=== PATIENT | male | born 2000 | race Caucasian/White ===

== ENCOUNTER 2019-05-01 07:02 | Emergency (ER) | payer BC ==
[2019-05-01 07:25] VITALS: BP 120/88
--- NOTE | 2019-05-01 07:37 | UC ---
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 Pt also states he has been coughing and exposed to strep. " -no fevers/chills. no wheezing. brother has asthma had some sinus pain last week but has resolved. no rash. never had mono. not really tired. no abd pain - History of Current Complaint Chief Complaint: UCGeneralIllness Stated Complaint: ST Time Seen by Provider: 05/01/19 07:19 Pain Intensity: 5 - Allergies/Home Medications Allergies/Adverse Reactions: Allergies Allergy/AdvReac Type Severity Reaction Status Date / Time Penicillins Allergy Unknown Verified 05/01/19 07:26 Reaction Details Home Medications: Home Medications Loratadine/Pseudoephedrine [Claritin-D 24 Hour 10-240 mg] 1 tab PO DAILY [History Confirmed 05/01/19] PMH/Surg Hx/FS Hx/Imm Hx Previously Healthy: Yes - Surgical History Surgical History: Yes Surgery Procedure, Year, and Place: testicular sugery- 17y - Family History Known Family History: Positive: Respiratory Disease - + asthma - Social History Alcohol Use: Rare Substance Use Type: None Smoking Status (MU): Never Smoked Tobacco Review of Systems All Other Systems Reviewed And Are Negative: Yes Constitutional: Positive: Negative. Negative: Fever, Chills, Fatigue Skin: Positive: Negative. Negative: Rash Eyes: Positive: Negative ENT: Positive: Sore Throat. Negative: Ear Ache, Nasal Discharge, Sinus Pain/ Tenderness Respiratory: Positive: Cough. Negative: Shortness Of Breath Cardiovascular: Positive: Negative. Negative: Palpitations Gastrointestinal: Positive: Negative. Negative: Abdominal Pain, Vomiting, Nausea Genitourinary: Positive: Negative Motor: Positive: Negative Neurovascular: Positive: Negative Musculoskeletal: Positive: Negative Neurological: Positive: Negative Psychological: Positive: Negative Is Patient Immunocompromised?: No Physical Exam Appearance: Well-Appearing, No Pain Distress, Well-Nourished Vital Signs: Initial Vital Signs Temp 97.7 F 05/01/19 07:22 Pulse 83 05/01/19 07:22 Resp 16 05/01/19 07:22 BP 120/88 05/01/19 07:22 Pulse Ox 100 05/01/19 07:22 Vital Signs Reviewed: Yes Eye Exam: Normal ENT Exam: Normal ENT: Positive: Pharyngeal erythema - mild., TMs normal, Uvula midline. Negative : Nasal congestion, Nasal drainage, TM bulging, TM dull, TM red, Tonsillar swelling, Tonsillar exudate, Sinus tenderness Dental Exam: Normal Neck exam: Normal Neck: Positive: Supple, Nontender, No Lymphadenopathy Respiratory Exam: Normal Respiratory: Positive: Lungs clear, Normal breath sounds, No respiratory distress, No accessory muscle use. Negative: Crackles, Rhonchi, Stridor, Wheezing Cardiovascular Exam: Normal Cardiovascular: Positive: RRR Abdominal Exam: Normal Abdomen Description: Positive: Nontender, No Organomegaly, Soft. Negative: Distended, Guarding, Splenomegaly Musculoskeletal Exam: Normal Neurological Exam: Normal Psychological Exam: Normal Skin Exam: Normal Skin: Negative: Rashes Throat Pain/Nasal Course/Dx - Course Course Of Treatment: Rapid strep neg -CBC w/ mono check - Differential Dx/Diagnosis Differential Diagnosis/HQI/PQRI: Mononucleosis, Pharyngitis, Tonsillitis, URI Provider Diagnosis: Pharyngitis Discharge ED - Sign-Out/Discharge Documenting (check all that apply): Patient Departure All imaging exams completed and their final reports reviewed: No Studies - Discharge Plan Condition: Stable Disposition: HOME Patient Education Materials: Pharyngitis (ED) Referrals: Deepti RUSSO,Sushant Grullon [Primary Care Provider] - 5 Days Additional Instructions: We have tested you for mono - you will get a call if it is positive. -rapid strep test is negative -Drink plenty of fluids and rest. tylenol or ibuprofen can help the pain. - Billing Disposition and Condition Condition: STABLE Disposition: Home
[2019-05-01 14:52] LABS: ABS Eosinophils 0.2 10^3/ul (0-0.6); ABS Lymphocytes 0.9 10^3/ul (1.0-4.8); ABS Monocytes 0.5 10^3/ul (0-0.8); ABS Neutrophils 3.1 10^3/ul (1.5-7.7); Hematocrit 44 % (42-52); Hemoglobin 15.2 g/dL (14.0-18.0); Lymphocyte % 17.9 %; Mean Corpuscular HGB Conc 35 g/dL (31-36); Mean Corpuscular Hemoglobin 31 pg (27-31); Mean Corpuscular Volume 90 fL (80-94); Mean Platelet Volume 10.2 fL (7.4-10.4); Platelet Count 174 10^3/uL (150-450); Red Blood Count 4.85 10^6 /uL (4.18-5.48); Red Cell Distribution Width 13 % (10-15); White Blood Count 4.7 10^3/uL (3.5-10.8)
--- NOTE | 2019-05-02 07:12 | UC ---
- Progress Note Progress Note: Assessed yesterday, dx pharyngitis. Labs reviewed, with normal white count and negative monospot. Please call with results. Course/Dx - Diagnoses Provider Diagnoses: Pharyngitis Discharge ED - Sign-Out/Discharge Documenting (check all that apply): Patient Departure All imaging exams completed and their final reports reviewed: No Studies - Discharge Plan Condition: Stable Disposition: HOME Patient Education Materials: Pharyngitis (ED) Referrals: Deepti RUSSO,Sushant Grullon [Primary Care Provider] - 5 Days Additional Instructions: We have tested you for mono - you will get a call if it is positive. -rapid strep test is negative -Drink plenty of fluids and rest. tylenol or ibuprofen can help the pain. - Billing Disposition and Condition Condition: STABLE Disposition: Home
== END 2019-05-01 07:58 | disposition home or self-care (01) ==
LOC: UCCORT 07:02
DX: J02.9 Acute pharyngitis, unspecified (principal); R05 Cough; Z88.0 Allergy status to penicillin
CPT/HCPCS: 36415; 85025; 86308; 87651; 99201; G0463